=== PATIENT | male | born 2000 | race Caucasian/White ===

== ENCOUNTER → 2020-04-11 | Outpatient (REF) | payer BC ==
[~2020-04-11] MED LIST: ACET1TAB15 PO; motrin PO
[2020-04-13 08:10] LABS: MUMPS VIRUS IgG ANTIBODY 36.5 AU/mL (Immune >10.9)
[2020-04-13 12:18] LABS: HEPATITIS B SURFACE ANTIBODY NEGATIVE (POSITIVE)
== END ==
LOC: M LAB REF 16:59
PROVIDERS: ATTEND Family Medicine
DX: Z11.59 Encounter for screening for other viral diseases (principal); Z02.0 Encounter for examination for admission to educational institution